=== PATIENT | female | born 2005 | race Caucasian/White ===

== ENCOUNTER → 2025-02-12 16:58 | Outpatient (REF) | payer BC, SELFPAY | LOC: RAD 16:58 | PROVIDERS: ATTENDING PHYSICIAN Nurse Practitioner Family; FAMILY PHYSICIAN Nurse Practitioner | DX: E27.0 Other adrenocortical overactivity (principal); E27.8 Other specified disorders of adrenal gland | CPT/HCPCS: 74170; Q9967 ==